=== PATIENT | female | born 1960 ===

== ENCOUNTER 2024-11-13 06:24 | Day surgery (SDC) | payer OTHER ==
[2024-11-13] MEDS ORDERED: FENTANYL CITR 100 MCG/2 ML ONE (07:31)
[2024-11-13] MEDS ORDERED: LIDOCAINE 2% MPF 5 ML VIAL ONE (07:31)
[2024-11-13] MEDS ORDERED: ONDANSETRON 4 MG/2 ML VIAL ONE (07:31)
[2024-11-13] MEDS ORDERED: propofoL 200 MG/20 ML VIAL IV ONE (07:31)
[2024-11-13] MEDS: BUPIVACAINE 0.5% PF 10 ML VIAL ONE (07:42)
[2024-11-13] MEDS: Ringers Lactate 1,000 ML IV ONE (07:43)
[2024-11-13] MEDS: CEFAZOLIN SODIUM 1 GM/VIAL ONE (07:43)
[2024-11-13 08:09] LABS: Absolute Monocytes 0.6 K/uL (0.1-1.3); Absolute Neutrophil 7.4 K/uL (1.8-8.0); Basophils % 0.2 % (0-1.3); Hematocrit 38.3 % (36.0-45.0); Hemoglobin 12.8 g/dL (12.0-15.0); Lymphocytes % 11.6 % (15.3-44.8); MCH 28.6 pg (27.0-35.0); MCHC 33.5 g/dL (32.0-36.0); MCV 85.2 fL (80-100); MPV 7.1 fL (7.6-11.3); Monocytes % 6.2 % (3.3-12.3); Platelets 250 thou/uL (152-406); RBC Red Blood Cell Count 4.49 M/uL (3.86-4.86); Red Cell Distribution Width 13.3 % (12.1-15.2)
[2024-11-13] MEDS: LIDOCAINE 1% MPF 5 ML VIAL ONE (08:09)
--- NOTE | 2024-11-13 08:13 | RAD REPORT ---
EXAMINATION: TWO VIEW CHEST XR CLINICAL INDICATION: PRE-OP TECHNIQUE: 2 views of the chest was performed. COMPARISON: No prior exam. FINDINGS: The lungs are hyperexpanded suggesting COPD. The heart is normal in size. No displaced fractures evid ent. Small hiatal hernia. IMPRESSION: No acute or significant abnormalities.
[2024-11-13 08:25] LABS: Anion Gap 7.1 mEq/L (5.0-15.0); Potassium 4.1 mEq/L (3.5-5.1)
[2024-11-13] MEDS ORDERED: MIDAZOLAM HCL 2 MG/2 ML INJ ONE (08:26)
[2024-11-13] MEDS ORDERED: KETOROLAC 30 MG/ML INJ ONE (08:32)
[2024-11-13] MEDS: MUPIROCIN 2% OINT 22GM TUBE TOP ONE (08:53)
--- NOTE | 2024-11-13 10:13 | P.BOP ---
Preoperative diagnosis: left middle finger subQ mass Postoperative diagnosis: same Primary procedure: Excisional biopsy of tender left middle finger subQ mass Estimated blood loss: <5cc Specimen: mass Findings: mass Anesthesia: General Complications: None Transferred to: Recovery Room Condition: Good
[2024-11-13 10:57] VITALS: BP 123/58; TEMP 97.2; O2SAT 98
--- NOTE | 2024-11-14 11:28 | EKG ---
Test Date: 2024-11-13 Test Time: 08:13:34 Precipitator Supervisor: PEACE MEASUREMENT RESULTS: Intervals: Rate: 120 UT: 90 QRSD: 164 QT: 356 QTc: 503 [place]: P: UT: 90 QRS: 91 T: 42 INTERPRETIVE STATEMENTS: Sinus tachycardia with short UT with premature supraventricular complexes with occasional premature ventricular complexes and f Rightward axis Nonspecific intraventricular block Abnormal ECG No previous ECG available for comparison Electronically Signed On 11-14-24 11:27:35 PBX W[employer]IEF by Carlos Keating
--- NOTE | 2024-11-18 11:13 | EKG ---
Test Date: 2024-11-13 Test Time: 08:42:12 [employer]: PREO MEASUREMENT RESULTS: Intervals: Rate: 68 MS: 176 QRSD: 80 QT: 394 QTc: 418 [place]: P: 66 MS: 176 QRS: 32 T: 10 INTERPRETIVE STATEMENTS: Normal sinus rhythm Normal ECG Compared to ECG 11/13/2024 08:13:34 Sinus tachycardia no longer present Atrial premature complex(es) no longer present Ventricular premature complex(es) no longer present Short MS interval no longer present Right-axis deviation no longer present Electronically Signed On 11-18-24 11:08:47 BROTH SETTER by Carlos Keating
== END 2024-11-13 10:40 | disposition home or self-care (01) ==
LOC: OR 06:24
PROVIDERS: ATTEND Surgery
PROC: 0JBK0ZZ Excision of Left Hand Subcutaneous Tissue and Fascia, Open Approach (ICD-10-PCS; principal; 2024-11-13 08:45)
DX: L72.8 Other follicular cysts of the skin and subcutaneous tissue (principal)
CPT/HCPCS: 93005 ×2; 87070; 85025; 80048; 36415; 87205; 88305; 87075; 71046; 11422; J2704; J2003 ×2; J2250; J3010; J2405; J7120; J0690